=== PATIENT | male | born 1950 | race Caucasian/White ===

== ENCOUNTER 2019-03-15 11:44 | Day surgery (SDC) | payer MEDICARE ==
[~2019-03-15] VITALS: Ht 170.2 cm; Wt 61.0 kg
[~2019-03-15 11:44] MED LIST: AUGMENTIN875TAB PO; FISH OIL500 MG OR; LEVOTHYROXIN50 MC1 OR; LITHIUM CARB300 M2 OR; PREDNISONE10 MG PO; PROPRANOLOL OR; SIMVASTATIN40 MG OR; TAMIFLU12 MG/ML OR; VITAMIN OR
[2019-03-15 13:39] LABS: HEMATOCRIT 42.2 % (39.0-50.0); IMMATURE GRANULOCYTES 0.4 % (0.0-5.0); MEAN CELL VOLUME 97.7 fL CALC (80.0-100.0); MEAN CORPUSCULAR HGB 32.4 pG CALC (26.0-32.0); MEAN CORPUSCULAR HGB CONC 33.2 g/L CALC (32.0-36.0); NEUT# 6.96 thou/uL (1.82-7.42); RED BLOOD COUNT 4.32 mill/uL (4.70-6.10); RED CELL DISTRI WIDTH 13.2 % (11.5-15.5)
[2019-03-15 13:49] LABS: ALKALINE PHOSPHATASE 87 u/l (38-126); ANION GAP 15 (6-22 (CALC)); BILIRUBIN, TOTAL 0.6 mg/dL (0.0-1.4); BUN 24 mg/dL (8-23); BUN/CREATININE RATIO 17 (12-20 (CALC)); CARBON DIOXIDE 21 mmol/l (22-30); CHLORIDE 112 mmol/l (95-108); CREATININE 1.4 mg/dL (0.7-1.3); GFR 50 ML/MIN (>=60 (CALC)); GFR FOR AFR.AMER. > 60 ML/MIN (>=60 (CALC)); LIPASE 39 u/l (23-300); POTASSIUM 4.2 mmol/l (3.5-5.1); SGOT/AST 14 u/l (19-48); SODIUM 144 mmol/l (137-146); TOTAL PROTEIN 7.2 g/dL (6.3-8.2)
[2019-03-15 13:51] LABS: URINE BLOOD DIPSTICK NEGATIVE (NEGATIVE); URINE COLOR YELLOW; URINE GLUCOSE - DIPSTICK NEGATIVE (NEGATIVE); URINE KETONE TRACE mg/dL (NEGATIVE); URINE LEUK ESTERASE NEGATIVE (NEGATIVE); URINE NITRITE - DIPSTICK NEGATIVE (Negative); URINE PH 5.5 (4.5-8.0); URINE PROTEIN - DIPSTICK 30 mg/dL (NEG-TRACE); URINE SPECIFIC GRAVITY >=1.030
[2019-03-15 13:56] LABS: URINE BILIRUBIN - DIPSTICK SMALL (NEGATIVE); URINE RBC 0-2 RBC/hpf (0-5); URINE WBC 0-2 WBC/hpf (0-5)
[2019-03-15 16:19] VITALS: BP 118/71
== END 2019-03-15 16:45 | disposition home or self-care (01) ==
LOC: ED 11:44 → ED-I 14:03 → ED 14:17 → ORM 14:18
PROVIDERS: Family Medicine; ATTEND Surgery
PROC: 0DC38ZZ Extirpation of Matter from Lower Esophagus, Via Natural or Artificial Opening Endoscopic (ICD-10-PCS; principal; 2019-03-15)
DX: T18.128A Food in esophagus causing other injury, initial encounter (principal); K29.80 Duodenitis without bleeding; K29.70 Gastritis, unspecified, without bleeding; K44.9 Diaphragmatic hernia without obstruction or gangrene; I10 Essential (primary) hypertension; E11.9 Type 2 diabetes mellitus without complications; J44.9 Chronic obstructive pulmonary disease, unspecified; F17.210 Nicotine dependence, cigarettes, uncomplicated; X58.XXXA Exposure to other specified factors, initial encounter
CPT/HCPCS: J1610

== ENCOUNTER 2019-11-22 16:52 | Emergency (ER) | payer OTHER, MEDICARE ==
[2019-11-22 17:48] LABS: HEMATOCRIT 40.9 % (39.0-50.0); HEMOGLOBIN 13.6 g/dl (14.0-18.0); IMMATURE GRANULOCYTES 0.6 % (0.0-5.0); MEAN CELL VOLUME 96.2 fL CALC (80.0-100.0); MEAN CORPUSCULAR HGB CONC 33.3 g/dL CAL (32.0-36.0); NEUT# 4.06 thou/uL (1.82-7.42); RED BLOOD COUNT 4.25 mill/uL (4.70-6.10); RED CELL DISTRI WIDTH 14.1 % (11.5-15.5)
[2019-11-22 17:50] LABS: GFR 50 ML/MIN (>=60 (CALC)); GFR FOR AFR.AMER. > 60 ML/MIN (>=60 (CALC))
[2019-11-22 18:01] LABS: ALBUMIN 3.8 g/dL (3.2-5.0); ALKALINE PHOSPHATASE 74 u/l (38-126); ANION GAP 11 (6-22 (CALC)); BILIRUBIN, TOTAL 0.7 mg/dL (0.0-1.4); BUN 19 mg/dL (8-23); BUN/CREATININE RATIO 13 (12-20 (CALC)); CARBON DIOXIDE 21 mmol/l (22-30); CHLORIDE 109 mmol/l (95-108); CREATININE 1.5 mg/dL (0.7-1.3); GFR 46 ML/MIN (>=60 (CALC)); GFR FOR AFR.AMER. 56 ML/MIN (>=60 (CALC)); LIPASE 36 u/l (23-300); POTASSIUM 4.1 mmol/l (3.5-5.1); SGOT/AST 14 u/l (19-48); SODIUM 137 mmol/l (137-146); TOTAL PROTEIN 6.9 g/dL (6.3-8.2)
[2019-11-22 18:20] LABS: URINE BILIRUBIN - DIPSTICK NEGATIVE (NEGATIVE); URINE BLOOD DIPSTICK NEGATIVE (NEGATIVE); URINE COLOR YELLOW; URINE GLUCOSE - DIPSTICK NEGATIVE (NEGATIVE); URINE KETONE NEGATIVE (NEGATIVE); URINE LEUK ESTERASE NEGATIVE (NEGATIVE); URINE NITRITE - DIPSTICK NEGATIVE (Negative); URINE PROTEIN - DIPSTICK TRACE mg/dL (NEG-TRACE); URINE SPECIFIC GRAVITY >=1.030
[2019-11-22] MEDS ORDERED: CYCLOBENZAPR5 MG PO (19:13)
[2019-11-22 19:42] VITALS: BP 149/72
== END 2019-11-22 19:42 | disposition home or self-care (01) | DRG 313 ==
LOC: ED 16:52
PROVIDERS: Family Medicine
DX: R07.89 Other chest pain (principal); R10.13 Epigastric pain; E11.9 Type 2 diabetes mellitus without complications; I10 Essential (primary) hypertension; J44.9 Chronic obstructive pulmonary disease, unspecified; F17.210 Nicotine dependence, cigarettes, uncomplicated; V47.5XXA Car driver injured in collision with fixed or stationary object in traffic accident, initial encounter
CPT/HCPCS: Q9967

== ENCOUNTER 2020-04-27 15:34 | Emergency (ER) | payer OTHER ==
[~2020-04-27] VITALS: Ht 170.2 cm; Wt 53.2 kg
[~2020-04-27 15:34] MED LIST changes: +CYCLOBENZAPR5 MG PO
[2020-04-27] MEDS ORDERED: CEPHALEXIN500 M1 PO (16:28)
[2020-04-27] MEDS ORDERED: BACTRIM DS1 TAB PO (16:28)
[2020-04-27 17:00] VITALS: BP 145/80
== END 2020-04-27 17:00 | disposition home or self-care (01) | DRG 603 ==
LOC: ED 15:34
DX: L03.115 Cellulitis of right lower limb (principal); E11.9 Type 2 diabetes mellitus without complications; I10 Essential (primary) hypertension; F32.9 Major depressive disorder, single episode, unspecified; J44.9 Chronic obstructive pulmonary disease, unspecified; F17.210 Nicotine dependence, cigarettes, uncomplicated; B95.0 Streptococcus, group A, as the cause of diseases classified elsewhere

== ENCOUNTER 2020-12-08 14:43 | Emergency (ER) | payer OTHER ==
[~2020-12-08] VITALS: Ht 170.2 cm; Wt 59.0 kg
[~2020-12-08 14:43] MED LIST changes: +BACTRIM DS1 TAB PO; +CEPHALEXIN500 M1 PO
[2020-12-08 15:33] LABS: HEMOGLOBIN 12.7 g/dl (14.0-18.0); IMMATURE GRANULOCYTES 0.5 % (0.0-5.0); MEAN CELL VOLUME 100.8 fL CALC (80.0-100.0); MEAN CORPUSCULAR HGB CONC 31.8 g/dL CAL (32.0-36.0); NEUT# 4.62 thou/uL (1.82-7.42); RED BLOOD COUNT 3.97 mill/uL (4.70-6.10); RED CELL DISTRI WIDTH 14.3 % (11.5-15.5)
[2020-12-08 15:51] LABS: ALBUMIN 3.6 g/dL (3.2-5.0); ALKALINE PHOSPHATASE 76 u/l (38-126); BILIRUBIN, TOTAL 0.5 mg/dL (0.0-1.4); BUN 16 mg/dL (8-23); BUN/CREATININE RATIO 11 (12-20 (CALC)); CHLORIDE 108 mmol/l (95-108); CREATININE 1.4 mg/dL (0.7-1.3); GFR 50 ML/MIN (>=60 (CALC)); GFR FOR AFR.AMER. 60 ML/MIN (>=60 (CALC)); LIPASE 71 u/l (23-300); POTASSIUM 4.6 mmol/l (3.5-5.1); SGOT/AST 18 u/l (19-48); SODIUM 136 mmol/l (137-146); TOTAL PROTEIN 6.9 g/dL (6.3-8.2)
[2020-12-08 15:53] LABS: ACT PARTIAL THROMBO TIME 28.1 SECONDS (20.0-32.5); PROTHROMBIN TIME 10.4 SECONDS (9.0-12.5)
[2020-12-08 15:59] LABS: ANION GAP 11 (6-22 (CALC)); CARBON DIOXIDE 22 mmol/l (22-30)
[2020-12-08 17:11] LABS: URINE BILIRUBIN - DIPSTICK NEGATIVE (NEGATIVE); URINE BLOOD DIPSTICK NEGATIVE (NEGATIVE); URINE COLOR YELLOW; URINE GLUCOSE - DIPSTICK NEGATIVE (NEGATIVE); URINE KETONE NEGATIVE (NEGATIVE); URINE LEUK ESTERASE NEGATIVE (NEGATIVE); URINE PROTEIN - DIPSTICK NEGATIVE (NEG-TRACE); URINE UROBILINOGEN - DIPSTICK 0.2 E.U./dL (0.2)
[2020-12-08] MEDS ORDERED: ZPAK PO (17:11)
[2020-12-08] MEDS ORDERED: MEDDOSEPAK PO (17:11)
[2020-12-08 17:12] LABS: URINE NITRITE - DIPSTICK NEGATIVE (Negative)
[2020-12-08 17:32] VITALS: BP 125/64
== END 2020-12-08 17:39 | disposition home or self-care (01) | DRG 192 ==
LOC: ED 14:43
DX: J43.9 Emphysema, unspecified (principal); I10 Essential (primary) hypertension; E11.9 Type 2 diabetes mellitus without complications; F32.9 Major depressive disorder, single episode, unspecified; F03.90 Unspecified dementia, unspecified severity, without behavioral disturbance, psychotic disturbance, mood disturbance, and anxiety; F17.200 Nicotine dependence, unspecified, uncomplicated; Z91.14 Patient's other noncompliance with medication regimen; Z91.81 History of falling; Z20.822 Contact with and (suspected) exposure to COVID-19

== ENCOUNTER 2021-02-20 11:58 | Emergency (ER) | payer OTHER ==
[~2021-02-20] VITALS: Ht 170.2 cm; Wt 59.0 kg
[~2021-02-20 11:58] MED LIST changes: +MEDDOSEPAK PO; +ZPAK PO
[2021-02-20 13:45] VITALS: BP 132/80
== END 2021-02-20 13:45 | disposition home or self-care (01) | DRG 90 ==
LOC: ED 11:58
DX: S06.0X0A Concussion without loss of consciousness, initial encounter (principal); S00.11XA Contusion of right eyelid and periocular area, initial encounter; I10 Essential (primary) hypertension; E11.9 Type 2 diabetes mellitus without complications; F32.9 Major depressive disorder, single episode, unspecified; F03.90 Unspecified dementia, unspecified severity, without behavioral disturbance, psychotic disturbance, mood disturbance, and anxiety; J43.9 Emphysema, unspecified; F17.210 Nicotine dependence, cigarettes, uncomplicated; W18.30XA Fall on same level, unspecified, initial encounter

== ENCOUNTER 2021-09-04 19:02 | Emergency (ER) | payer OTHER, MEDICARE ==
[~2021-09-04] VITALS: Ht 170.2 cm; Wt 61.0 kg
[2021-09-04 20:28] LABS: HEMATOCRIT 41.7 % (39.0-50.0); HEMOGLOBIN 13.8 g/dl (14.0-18.0); IMMATURE GRANULOCYTES 0.3 % (0.0-5.0); MEAN CELL VOLUME 96.8 fL CALC (80.0-100.0); MEAN CORPUSCULAR HGB CONC 33.1 g/dL CAL (32.0-36.0); NEUT# 7.67 thou/uL (1.82-7.42); RED BLOOD COUNT 4.31 mill/uL (4.70-6.10); RED CELL DISTRI WIDTH 13.6 % (11.5-15.5)
[2021-09-04 20:48] LABS: ALBUMIN 3.5 g/dL (3.2-5.0); BILIRUBIN, TOTAL 0.6 mg/dL (0.0-1.4); CREATININE 1.4 mg/dL (0.7-1.3); MAGNESIUM 2.1 mg/dL (1.6-2.3); POTASSIUM 3.5 mmol/l (3.5-5.1); TOTAL PROTEIN 6.3 g/dL (6.3-8.2)
[2021-09-04 21:20] LABS: TSH, 3RD GENERATION 1.26 uIU/mL (0.47 - 4.68)
[2021-09-04 21:36] LABS: URINE BILIRUBIN - DIPSTICK NEGATIVE (NEGATIVE); URINE BLOOD DIPSTICK NEGATIVE (NEGATIVE); URINE COLOR YELLOW; URINE GLUCOSE - DIPSTICK NEGATIVE (NEGATIVE); URINE KETONE 15 mg/dL (NEGATIVE); URINE LEUK ESTERASE NEGATIVE (NEGATIVE); URINE PROTEIN - DIPSTICK NEGATIVE (NEG-TRACE); URINE SPECIFIC GRAVITY 1.025
[2021-09-04 21:44] LABS: URINE NITRITE - DIPSTICK NEGATIVE (Negative)
[2021-09-04 22:47] VITALS: BP 137/84
== END 2021-09-04 22:47 | disposition home or self-care (01) | DRG 948 ==
LOC: ED 19:02
PROVIDERS: Family Medicine
DX: R53.1 Weakness (principal); M54.2 Cervicalgia; I10 Essential (primary) hypertension; E11.9 Type 2 diabetes mellitus without complications; J43.9 Emphysema, unspecified; F03.90 Unspecified dementia, unspecified severity, without behavioral disturbance, psychotic disturbance, mood disturbance, and anxiety; F32.A Depression, unspecified; F17.200 Nicotine dependence, unspecified, uncomplicated; W06.XXXA Fall from bed, initial encounter; Y92.003 Bedroom of unspecified non-institutional (private) residence as the place of occurrence of the external cause; Z91.81 History of falling; Z60.2 Problems related to living alone

== ENCOUNTER 2022-01-09 15:22 | Observation (INO) | payer OTHER, MEDICARE ==
[~2022-01-09] VITALS: Ht 170.2 cm; Wt 57.0 kg
[2022-01-09] VITALS (26 sets, daily range): BP systolic 146–191; BP diastolic 91–112
--- NOTE | 2022-01-09 15:45 | NUR ---
PT ESCORTED VIA EMS STRETCHER TO ROOM 9 FOR EVAL OF WEAKNESS, LETHARGY, AND FALLS YESTERDAY
[2022-01-09 16:17] LABS: HEMATOCRIT 42.8 % (39.0-50.0); HEMOGLOBIN 14.7 g/dl (14.0-18.0); IMMATURE GRANULOCYTES 0.4 % (0.0-5.0); MEAN CELL VOLUME 93.9 fL CALC (80.0-100.0); MEAN CORPUSCULAR HGB 32.2 pG CALC (26.0-32.0); MEAN CORPUSCULAR HGB CONC 34.3 g/dL CAL (32.0-36.0); NEUT# 5.91 thou/uL (1.82-7.42); RED BLOOD COUNT 4.56 mill/uL (4.70-6.10); RED CELL DISTRI WIDTH 13.1 % (11.5-15.5)
[2022-01-09 16:40] LABS: ALBUMIN 3.5 g/dL (3.2-5.0); BILIRUBIN, TOTAL 0.5 mg/dL (0.0-1.4); CREATININE 1.4 mg/dL (0.7-1.3); TOTAL PROTEIN 6.6 g/dL (6.3-8.2)
[2022-01-09 16:42] LABS: PROTHROMBIN TIME 10.4 SECONDS (9.0-12.5)
[2022-01-09 17:39] LABS: URINE BILIRUBIN - DIPSTICK NEGATIVE (NEGATIVE); URINE BLOOD DIPSTICK SMALL (NEGATIVE); URINE COLOR YELLOW; URINE GLUCOSE - DIPSTICK NEGATIVE (NEGATIVE); URINE KETONE TRACE mg/dL (NEGATIVE); URINE LEUK ESTERASE NEGATIVE (NEGATIVE); URINE PROTEIN - DIPSTICK TRACE mg/dL (NEG-TRACE); URINE SPECIFIC GRAVITY >=1.030; URINE UROBILINOGEN - DIPSTICK 0.2 E.U./dL (0.2)
[2022-01-09 17:42] LABS: URINE NITRITE - DIPSTICK POSITIVE (Negative)
[2022-01-09 17:52] LABS: URINE BACTERIA MODERATE hpf
[2022-01-09] MEDS ORDERED: GABAPENTIN100 MG PO (18:13)
[2022-01-09] MEDS ORDERED: LISINOPRIL10 MG PO (18:13)
[2022-01-09] MEDS ORDERED: GLIPIZIDE ER5 MG PO (18:14)
[2022-01-09] MEDS ORDERED: SIMVASTATIN5 MG PO (18:15)
[2022-01-09] MEDS ORDERED: PROPRANOLOL XX (18:19)
--- NOTE | 2022-01-09 22:00 | NUR ---
PATIENT ARRIVED TO UNIT VIA STRETCHER. TRANSFERRED TO BED WITH ASSISTANCE X3. PATIENT ALERT AND ORIENTED TO SELF. NO DISTRESS NOTED. HAS NO COMPLAINTS AT THIS. ORIENTED TO ROOM AND CALL TAMAYO. BED ALARM INITIATED. FALL PRECAUTION EDUCATION; PATIENT REQUIRES FREQUENT REORIENTATION. FALL PRECAUTIONS IN PLACE.
[2022-01-10] VITALS (8 sets, daily range): BP systolic 126–169; BP diastolic 78–92
--- NOTE | 2022-01-10 04:13 | NUR ---
PATIENT SLEEPING AT THIS TIME. INFORMED BY LAB TECHNITION THAT PATIENT IS REFUSING LAB DRAW AND REQUESTING TO BE DRAWN AT A LATER TIME. FALL PRECAUTIONS IN PLACE.
--- NOTE | 2022-01-10 07:00 | NUR ---
RECEIVE REPORT FROM JUJU SCHREIBER.
--- NOTE | 2022-01-10 08:00 | NUR ---
ALERT AND ORIENTED PATIENT RESTING IN BED. STABLE ITAL SIGNS AT THIS TIME. PAT IS EDUCATED AND ORIENTED ABOUD MEDICATIONS AND NURSING PLAN FOR TODAY. PATIENT REFER UNDERSTAND. FALL AND SAFETY PRECAUTIONS IN PLACE. CALL LIHT IS WITHIN REACH.
[2022-01-10 09:24] LABS: HEMATOCRIT 39.9 % (39.0-50.0); HEMOGLOBIN 13.5 g/dl (14.0-18.0); MEAN CELL VOLUME 93.7 fL CALC (80.0-100.0); MEAN CORPUSCULAR HGB 31.7 pG CALC (26.0-32.0); MEAN CORPUSCULAR HGB CONC 33.8 g/dL CAL (32.0-36.0); RED BLOOD COUNT 4.26 mill/uL (4.70-6.10); RED CELL DISTRI WIDTH 13.4 % (11.5-15.5)
[2022-01-10 10:03] LABS: ANION GAP 8 (6-22 (CALC)); BUN 17 mg/dL (8-23); BUN/CREATININE RATIO 15 (12-20 (CALC)); CARBON DIOXIDE 27 mmol/l (22-30); CHLORIDE 106 mmol/l (95-108); CREATININE 1.2 mg/dL (0.7-1.3); GFR FOR AFR.AMER. > 60 ML/MIN (>=60 (CALC)); GFR OTHER RACES 60 ML/MIN (>=60 (CALC)); POTASSIUM 3.7 mmol/l (3.5-5.1); SODIUM 138 mmol/l (137-146)
--- NOTE | 2022-01-10 12:21 | NUR ---
PATIENT RESTING IN BED. STABLE AT THIS TIME.
--- NOTE | 2022-01-10 16:15 | NUR ---
PATIENT IS OBSERVE TO BE SLEEPU THROUGHOUT THE DAY. THE PATIENT IS EVALUATED ANSWERS ASSERTIVELY THE QUESTIONS. THEY ARE NO EVIDENCE ANY DEFICIT AT THIS TIME. DOCTOR CAMILA EVALUATED PATIENT TOO.
--- NOTE | 2022-01-10 19:00 | NUR ---
PATIENT LAYING IN BED AT THIS TIME RN ASSESSEMENT DONE SEE INTERVENTION. PATIENT ALERT TO NAME AND KNOWS HE IS IN THE HOSPITAL "PATIENT STATES BUT I DON'T KNOW WHY". LUNG SOUNDS ASSESSED AND ARE CLEAR IN ALL FIELD. BOWEL SOUNDS PRESENT. PATINET DENIES ANY PAIN AT THIS TIME. TELE MONITOR ON AND BEING MONITORED BY ED. SIDERAILS ARE UP X 2 AND CALL LIGHT IS WITHIN REACH. IV PATENT AND NORMAL SALINE AT 80ML/HR RUNNING AT THIS TIME.
--- NOTE | 2022-01-10 20:37 | NUR ---
Patient refused blood sugar.
--- NOTE | 2022-01-10 21:00 | NUR ---
PATIENT REFUSED TO HAVE GLUCOSE ACCU CHECK DONE. PATIENT STATED "I AM NOT A DIABETIC".
--- NOTE | 2022-01-10 23:37 | NUR ---
PATIENT RESTING IN BED AT THIS TIME PATIENT DENIES ANY NEEDS SIDERAILS ARE UP CALL LIGHT IS WITHIN REACH. TELE MONITOR REMAINS IN PLACE AND BEING MONITORED BY ED.
[2022-01-11] VITALS (13 sets, daily range): BP systolic 124–182; BP diastolic 74–106
--- NOTE | 2022-01-11 03:34 | NUR ---
PATIENT IN BED LAYING ON RIGHT SIDE WITH EYES CLOSED AND RESPIRATIONS EASY AND UNLABORED AT THIS TIME. TELE MONITOR REMAINS IN PLACE AND BEING MONITORED BY ED. SIDERAILS ARE UP X 2 AND CALL LIGHT IS WITHIN REACH. WILL CONTINUE TO MONITOR.
[2022-01-11 05:34] LABS: HEMATOCRIT 37.8 % (39.0-50.0); HEMOGLOBIN 12.8 g/dl (14.0-18.0); MEAN CELL VOLUME 94.3 fL CALC (80.0-100.0); MEAN CORPUSCULAR HGB 31.9 pG CALC (26.0-32.0); MEAN CORPUSCULAR HGB CONC 33.9 g/dL CAL (32.0-36.0); RED BLOOD COUNT 4.01 mill/uL (4.70-6.10); RED CELL DISTRI WIDTH 13.3 % (11.5-15.5)
[2022-01-11 06:00] LABS: ANION GAP 8 (6-22 (CALC)); BUN 16 mg/dL (8-23); BUN/CREATININE RATIO 15 (12-20 (CALC)); CARBON DIOXIDE 23 mmol/l (22-30); CHLORIDE 108 mmol/l (95-108); CREATININE 1.1 mg/dL (0.7-1.3); GFR FOR AFR.AMER. > 60 ML/MIN (>=60 (CALC)); GFR OTHER RACES > 60 ML/MIN (>=60 (CALC)); MAGNESIUM 1.9 mg/dL (1.6-2.3); SODIUM 135 mmol/l (137-146)
--- NOTE | 2022-01-11 07:00 | NUR ---
REPORT RECEIVED FROM CANDIE GARNER
--- NOTE | 2022-01-11 08:53 | NUR ---
PT EATING BREAKFAST UPON ENTERING ROOM. ASSESSMENT ALLOWED. PT ABLE TO TELL ME NAME AND . ABLE TO TELL ME YEAR BUT UNABLE TO KNOW LOCATION. ABLE TO OBEY COMMANDS.22G RAC FLUSHED IVF INFUSING PER EMAR. BLOOD GLUCOSE CHECK 94. ABLE TO TAKE PO MEDS. TELE MONITOR IN PLACE, CONINTOUS MONITORING PER ED. FALL/SAFTEY PRECAUTION IN PLACE,CALLLIGHT WITHIN REACH
--- NOTE | 2022-01-11 13:00 | NUR ---
PT EATING LUNCH. FAMILY AT BEDSIDE. NO DISTRESS NOTED. FALL/SAFTEY PRECAUTION IN PLACE. CALL LIGHT WITHIN REACH.
--- NOTE | 2022-01-11 16:18 | NUR ---
REPORT GIVEN TO TRUCK SWITCHER. PT TRANSFERED TO ICU VIA STRETCHER.
--- NOTE | 2022-01-11 16:46 | NUR ---
Transportation arranged at 1930 to [facility]. N2N report given to Mena. Nurse completed a NIH scale, scored 0. Patient has dementia which made it hard to get information. Will continue to monitor till transportation gets here.
--- NOTE | 2022-01-11 18:36 | NUR ---
Patient's daughter updated on transfer. Daughter agree to transfer.
--- NOTE | 2022-01-11 19:45 | NUR ---
PATIENT LEFT VIA [facility] AT 1945 TO [facility]. Discharge instructions given. Patient verbalizes understanding of same. Discharged in stable condition via Medical Transport to [facility] with [facility]. All belongings sent with pt.
== END 2022-01-11 19:45 | DRG 65 ==
LOC: ED 15:22 → ED-I 16:46 → ED 16:46 → ED-I 18:00 → ED 18:41 → MS2 18:42 → ICU 01-11 16:25
PROVIDERS: ADMIT Hospitalist; ATTEND Hospitalist
DX: I63.49 Cerebral infarction due to embolism of other cerebral artery (principal); N39.0 Urinary tract infection, site not specified; R47.01 Aphasia; R26.81 Unsteadiness on feet; I10 Essential (primary) hypertension; E11.9 Type 2 diabetes mellitus without complications; J43.9 Emphysema, unspecified; F03.90 Unspecified dementia, unspecified severity, without behavioral disturbance, psychotic disturbance, mood disturbance, and anxiety; E78.5 Hyperlipidemia, unspecified; F20.9 Schizophrenia, unspecified; F17.210 Nicotine dependence, cigarettes, uncomplicated; B95.7 Other staphylococcus as the cause of diseases classified elsewhere; Z91.81 History of falling; Z20.822 Contact with and (suspected) exposure to COVID-19
CPT/HCPCS: Q9967